=== PATIENT | female | born 1945 | race Caucasian/White ===

== ENCOUNTER → 2017-01-07 | Outpatient (CLI) | payer MEDICARE, BC ==
[2017-01-07 13:40] LABS: CH 29.1; CHCM 31.9; HCT 44.5 % (34.0-46.0); HDW 2.15; HGB 14.3 gm/dL (11.4-16.0); MCH 29.3 pg (25.0-35.0); MCV 91.6 fL (80.0-100.0); Mean Platelet Volume 7.5; RBC 4.86 m/uL (3.80-5.40); RDW 13.4 % (11.5-15.5)
[2017-01-07 13:49] LABS: Total Protein 8.5 g/dL (6.3-8.2)
[2017-01-07 13:53] LABS: Total Bilirubin 0.6 mg/dL (0.2-1.3)
[2017-01-07 14:32] LABS: Calcium 10.4 mg/dL (8.4-10.2); Potassium 4.5 mmol/L (3.5-5.1)
[2017-01-07 21:38] LABS: Hemoglobin A1C 6.3 % (4.2-6.1)
== END | disposition home or self-care (01) ==
LOC: LABWHC1 11:41
PROVIDERS: ATTEND Family Medicine
DX: Z00.00 Encounter for general adult medical examination without abnormal findings (principal); E03.9 Hypothyroidism, unspecified; E11.9 Type 2 diabetes mellitus without complications
CPT/HCPCS: 36415; 80053; 80061; 82306; 83036; 84439; 84443; 85027

== ENCOUNTER 2017-10-18 09:05 | Day surgery (SDC) | payer MEDICARE, BC ==
[2017-10-13 14:57] VITALS: BMI 26.6
--- NOTE | 2017-10-18 05:24 | HP ---
HISTORY AND PHYSICAL CHIEF COMPLAINT: Status post complete excision of large basal cell carcinoma of the right side of the nose. HISTORY OF PRESENT ILLNESS: This patient is a 72-year-old female who was recently seen in my office with interesting story. She apparently underwent resection of a basal cell carcinoma of the right side of her nose, which required extensive excision and initial reconstruction by Dr. Riojas. After the initial surgery, it was noted that there was still some evidence of tumor cells deep to the biopsy specimen and therefore a second surgery was planned. At the time of the second surgery, an attempt was made to cover the wound defect with a postauricular graft which apparently was not sufficient. Therefore, he subsequently performed a midline/median forehead flap to reconstruct the large wound defect on the right side of the nose. The procedure was done approximately 2 years ago. The patient due to transportation difficulty had problems returning to Dr. Riojas's office for followup and for suture removal. He had informed her that at some point the flap would need to be released. However, the patient for personal reasons decided not to return to Dr. Riojas. At this time, she is quite concerned about her appearance because of the large mass of flesh on the right side of her nose. Reviewing Dr. Riojas's records reveals that this was an invasive basal cell carcinoma. Clinical examination revealed that the area had healed completely and was well vascularized and the flap needed to be released superiorly and inferiorly. The patient was advised that the flap could be released and the area reconstructed under general anesthesia. PAST MEDICAL HISTORY: Past medical history reveals the patient has allergies to CARBATROL, LAMICTAL, KEPPRA. MEDICATIONS: Current medications include enalapril, one baby aspirin daily, Besylate, and Vimpat for seizures. REVIEW OF SYSTEMS: Cardiovascular is positive for hypertension. The remainder of review of systems is essentially unremarkable. PREVIOUS SURGERIES: Previous surgeries include tonsillectomy, adenoidectomy. The patient is 2 para, 2 , 0 miscarriages and also removal of skin cancer from the right side of the nose. PHYSICAL EXAMINATION: The patient is a 72-year-old female who is alert and cooperative. HEENT EXAMINATION: Patient is normocephalic. Tympanic membranes are normal. Middle ear spaces are free of any fluid or infection. Pupils equal, round and react to light and accommodation. Extraocular movements within normal limits. Intranasal examination is unremarkable. Examination of the face reveals the patient has a well-healed forehead flap pedicle on the right side of the nose. Examination of oropharynx, cranial nerves 2 through 12, palpation of the neck, remainder of the head and neck exam are all within normal limits. CHEST/CARDIOVASCULAR: Both lung castellon are clear to percussion and auscultation. The patient is in regular sinus rhythm. S1 and S2 are present without evidence of any murmurs, S3s or S4s. Peripheral pulses are bilaterally symmetrical. ABDOMEN: There is no evidence of masses, megaly, or tenderness. The abdomen is soft. Skin is unremarkable. Musculoskeletal and neurological and the remainder of the physical exam is essentially unremarkable. IMPRESSION: Status post excision of basal cell carcinoma of the right side of the nose with reconstruction via midline/median forehead flap. PLAN: The patient is scheduled for release of midline forehead flap and reconstruction under general anesthesia. ATTENTION RNS IN THE PRE-SURGICAL AREA: The only medications that I have ordered for this patient to receive are 1000 mg of Ofirmev IV and 1 gram of Kefzol IV, both to be given once an intravenous line has been established. I did not order any other pre- surgical prophylactic antibiotics for this patient. If the pharmacy department sends any other pre-surgical prophylactic antibiotics other than those that I have ordered to the pre-surgical area for this patient, they should be returned to the pharmacy department and make sure that the patient's account is credited appropriately. I have discussed the risks, benefits and alternative therapies for the above-mentioned procedure and for both sedation/analgesia as well as necessary blood product administration, if indicated, as they pertain to this patient. The patient has indicated his or her understanding and acceptance of the risks and procedures discussed. MMODL / IJN: [id number] /
[~2017-10-18 09:05] MED LIST: HYDROmorphone 0.5 MG/0.5 ML SYRINGE IVP PRN; LACTATED RINGERS 1,000 ML IV SCH; LIDOCAINE 1% 20 ML VIAL (10MG/ML) FOR IV START INTRADERMA PRN; ONDANSETRON 4 MG/2 ML VIAL IVP ONE; Pre Op ABX Message 1 EACH MISC MISCELLANE ONE; ceFAZolin 1,000 MG in DEXTROSE/WATER 1 50ML.BAG IVPB ONE
[2017-10-18 09:20] VITALS: TEMP 97.4
[2017-10-18] MEDS ORDERED: ACETAMINOPHEN IV (For NPO) 1,000 MG in EMPTY BAG 1 BAG IVPB ONE (09:45)
[2017-10-18] MEDS ORDERED: LIDOCAINE 1% INJ 10MG/ML (20 ML MDV) ONE (10:25)
[2017-10-18] MEDS ORDERED: GLYCOPYRROLATE 0.2 MG/ML 2 ML VIAL ONE (10:25)
[2017-10-18] MEDS ORDERED: ROCURONIUM BROMIDE 10 MG/ML 10 ML VIAL IV ONE (10:25)
[2017-10-18] MEDS ORDERED: PROPOFOL 10 MG/ML 20 ML VIAL IV ONE (10:25)
[2017-10-18] MEDS ORDERED: HYDROmorphone (PF) 1 MG/ML ONE (10:25)
[2017-10-18] MEDS ORDERED: MIDAZOLAM 2 MG/2 ML VIAL ONE (10:25)
[2017-10-18] MEDS ORDERED: PHENYLEPHRINE-0.9% NACL SYG 1 MG/10 ML SYRINGE ONE (10:25)
[2017-10-18] MEDS ORDERED: ePHEDrine SULFATE/0.9% NACL/PF 50 MG/5 ML SYRINGE IV ONE (10:25)
[2017-10-18] MEDS ORDERED: fentaNYL (PF) 50 MCG/ML 2 ML AMP ONE (10:25)
[2017-10-18] MEDS ORDERED: NEOSTIGMINE 1 MG/ML 10 ML VIAL ONE (10:25)
[2017-10-18 10:37] LABS: Calcium 10.1 mg/dL (8.4-10.2); Potassium 4.2 mmol/L (3.5-5.1)
[2017-10-18] MEDS ORDERED: LIDOCAINE 1%-EPI 1:100,000 20 ML VIAL SQ ONE (10:59)
[2017-10-18] MEDS ORDERED: LACTATED RINGERS 1,000 ML IV ONE (12:50)
[2017-10-18] MEDS ORDERED: BACITRACIN 500 UNIT/GM OINT 28.4 GM TUBE TOPICAL ONE (12:56)
[2017-10-18 13:35] LABS: Glucose,Whole Blood 117 mg/dL (75-99)
[2017-10-18 14:54] VITALS: RESP 20
[2017-10-18 14:58] VITALS: BP 142/72; PULSE 56
--- NOTE | 2017-10-18 23:24 | OP ---
OPERATIVE REPORT DATE OF SURGERY: 10/18/2017 PREOPERATIVE DIAGNOSES: 2nd stage nasal reconstruction with revision of midline forehead flap (status post excision of basal cell carcinoma 3-4 cm). POSTOPERATIVE DIAGNOSES: 2nd stage nasal reconstruction with revision of midline forehead flap (status post excision of basal cell carcinoma 3-4 cm). ANESTHESIA: Was general. OPERATIVE PROCEDURE: Nasal reconstruction with revision of forehead flap. SURGEON: Dr. Almeida. COMPLICATIONS: None. ESTIMATED BLOOD: Loss 10-15 mL. OPERATIVE PROCEDURE: The patient was placed on operating table in supine position and after uneventful induction and endotracheal intubation, satisfactory general anesthesia was obtained. Next the patient was draped and the right santiago face was prepped in the usual and customary fashion. Following this, the forehead flap was inspected and was found to be well healed. The original midline scar was also located and marked with a Codman seal marking pen. The handle of an empty scalpel blade was placed underneath the flap, which was located on the right side of the patient's nose and this was passed through easily, thus delineating the superior and inferior portion of the flap, namely the donor and the recipient areas. Attention was initially turned to the superior aspect of the flap, the donor site and using a Codman marking pen the appropriate thick proposed incisions to divide the flap at this area was made in the usual fashion. Next, using a #15 scalpel blade, an incision was initially made through skin only in the areas which had been previously been outlined with the Codman marking pen. The incision was subsequently carried deeper, but it was done so in a slow fashion with the knowledge that most likely the superior trochlear one of the nasal vessels would most likely be located in this portion of the flap. As the incision was carried deeper and the flap was eventually at this point. In fact, the a branch of the superior trochlear artery was encounter and this was clamped with a mosquito hemostats and subsequently was tied with a 4-0 silk suture. Minor bleeding was addressed using electrocautery. There was noted to be significant granulation tissue present and this was removed using a pair of small iris scissors in the usual fashion. The previously made incision which had been outlined with a Codman marker for the original surgery was subsequently incised a short distance, approximately 1-1/2 cm. Undermining of the soft tissues of the forehead was carried out using a pair of curved sharp curved scissors. Next, the flap itself was grasped and was manipulated back into its original position in the usual fashion. There was significant amount of granulation and scar tissue which was broken up with simple pressure and some of some of the granulation tissue was excised. Next, the muscle was from the flap and was subsequently sutured separately with 4-0 Vicryl suture in the wound defect. The flap itself was then trimmed to fit using a pair of sharp curved Nj scissors. Further granulation tissue was also removed with a sharp Esteban scissors. The flap was then put it back into its original position. It was noted that and doing so left only a minimal amount of asymmetry of the patient's eyebrows and a very slight bulge of the right superior orbit near the frontal nasal junction. Therefore, the flap was reattached in the usual fashion using 4-0 Vicryl for several deep sutures in a subcutaneous fashion. The skin itself was approximated using 4-0 Ethilon in a simple interrupted fashion. Inspection revealed that a satisfactory closure in appearance had been obtained. Next, attention was directed towards the inferior portion of the flap, which was the donor site on the right side of the nose and involving a portion of the cheek in the region of the nasal labial fold. The stump itself was delineated and the proposed incisions was outlined using Codman marking pen. This was done in the usual fashion and subsequently using a #15 scalpel blade. Incision was made through skin, subcutaneous tissue. Next, the scar tissue and fatty tissue was subsequently incised, thus freeing up the flap completely. Proper measurement/adjustment of the flap was made so that it would cover the original wound defect. The portion of the flap to be retained was outlined with a Codman marker and the excess flap was excised with a #15 scalpel in the usual and customary fashion and it was discarded. The flap rim that was subsequently trimmed to fit the wound defect in the usual fashion. It was tacked to the underlying subcutaneous tissue and muscle using a using several 4-0 Vicryl sutures in interrupted fashion. Hemostasis was obtained using electrocautery. The flap was then prior to doing this, the flap had to be significantly debulked of fatty tissue and scar tissue. This was done using a pair of curve Esteban scissors in the usual fashion. Care was taken not to thin the flap about too much. Also care was taken not to accidentally buttonhole the flap. Once it was felt that the flap was adequately thinned out with the appropriate amount of thick thickness having been achieved, the flap was further attached using 4-0 Ethilon in a simple interrupted fashion. Inspection revealed that a satisfactory cosmetic result had been obtained, both superiorly at the donor site and inferiorly at the recipient area. At this point, the procedure was terminated. The sutures/incisions were generously coated with bacitracin ointment. ESTIMATED BLOOD LOSS: Was 10-15 mL. COMPLICATIONS: There were no intraoperative complications. The patient tolerated the procedure well. There were no specimens sent to pathology. The patient was returned to the recovery room in satisfactory condition. It is to be noted that this procedure which normally would take approximately 35 minutes in fact in this patient took approximately 2 hours with a starting time of approximately 10:30 and completion time of approximately 11:33. The reason for the extended time was because of the significant scarring which was present due to the fact that there had been extended period of time, approximately 2 years, between the patient's original surgery and today's surgery. The scar tissue made the surgery somewhat slower and more difficult in an effort to achieve a satisfactory cosmetic result for this patient. MMODL / IJN: [id number] /
== END 2017-10-18 14:50 ==
LOC: OR 09:05
PROVIDERS: ATTEND Otolaryngology
DX: C44.311 Basal cell carcinoma of skin of nose (principal); Z42.8 Encounter for other plastic and reconstructive surgery following medical procedure or healed injury; Z85.828 Personal history of other malignant neoplasm of skin; I10 Essential (primary) hypertension; E78.5 Hyperlipidemia, unspecified; E11.9 Type 2 diabetes mellitus without complications; I69.398 Other sequelae of cerebral infarction; E07.9 Disorder of thyroid, unspecified; R56.9 Unspecified convulsions; Z79.891 Long term (current) use of opiate analgesic; Z79.82 Long term (current) use of aspirin; Z79.899 Other long term (current) drug therapy; Z88.8 Allergy status to other drugs, medicaments and biological substances; Z91.09 Other allergy status, other than to drugs and biological substances
CPT/HCPCS: 30430; 80048; J2250; J2710; J2001; J3010; J1170 ×2; J0690; J0131; J2370; J2704

== ENCOUNTER 2022-02-12 06:50 | Day surgery (SDC) | payer MEDICARE, BC ==
[2022-02-11 09:32] VITALS: BMI 26.1
[2022-02-12] MEDS ORDERED: LACTATED RINGERS 1,000 ML IV SCH (07:19)
[2022-02-12 08:06] VITALS: TEMP 97.6
[2022-02-12 08:16] LABS: Glucose,Whole Blood 203 mg/dL (75-99)
[2022-02-12] MEDS ORDERED: LIDOCAINE 2% INJ 20 MG/ML (2 ML VIAL) ONE (08:58)
[2022-02-12] MEDS ORDERED: PROPOFOL 10 MG/ML 20 ML VIAL IV ONE (08:58)
--- NOTE | 2022-02-12 09:02 | P.GSHP ---
History of Present Illness H&P Date: 02/12/22 Chief Complaint: Internal and external hemorrhoids, rectal bleeding This a 68-year-old female who's had issues with introduction hemorrhoids and some intermittent rectal bleeding. She feels today for colonoscopy. 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 ORIF LT UPPER LEG, KNEE (HAS 4 PINS). skin cancer removed from nose, 2-4-16 facial reconstruction forehead flap( d/t skin cancer) Past Anesthesia/Blood Transfusion Reactions: Motion Sickness Smoking Status: Never smoker - Past Family History Brother(s) Family Medical History: Cancer Medications and Allergies Home Medications Medication Instructions Recorded Confirmed Type Atorvastatin [Lipitor] 10 mg PO HS 02/11/22 02/11/22 History Insulin Aspart [NovoLOG Flexpen] 3 units SQ BID 02/11/22 02/11/22 History Insulin Aspart [NovoLOG Flexpen] 6 units SQ AC-SUPPER 02/11/22 02/11/22 History Metoprolol Tartrate [Lopressor] 25 mg PO BID 02/11/22 02/11/22 History Sennosides/Docusate Sodium [Senna 2 each PO HS 02/11/22 02/11/22 History Plus 8.6-50 mg Tablet] hydrALAZINE HCL [Apresoline] 100 mg PO DAILY PRN 02/11/22 02/11/22 History metOLazone [Zaroxolyn] 2.5 mg PO TID 02/11/22 02/11/22 History Allergies Allergy/AdvReac Type Severity Reaction Status Date / Time adhesive tape Allergy Itching Verified 02/12/22 07:58 carbamazepine Allergy Unknown Verified 02/12/22 07:58 [From Carbatrol] lamotrigine [From Lamictal] Allergy Unknown Verified 02/12/22 07:58 levetiracetam [From Keppra] Allergy Itching Verified 02/12/22 07:58 phenytoin sodium AdvReac REMOVED Verified 02/12/22 07:58 [From Dilantin] CALCIUM FROM BONES phenytoin sodium extended AdvReac REMOVED Verified 02/12/22 07:58 [From Dilantin] CALCIUM FROM BONES CELEBREX Allergy Unknown Uncoded 02/12/22 07:58 dial soap Allergy Itching Uncoded 02/12/22 07:58 Surgical - Exam Vital Signs Temp Pulse Resp BP Pulse Ox 97.6 F 69 18 120/67 92 L 02/12/22 08:04 02/12/22 08:04 02/12/22 08:04 02/12/22 08:04 02/12/22 08:04 - General well developed, well nourished, no distress - Eyes PERRL - ENT normal pinna - Neck no masses - Respiratory normal expansion - Cardiovascular Rhythm: regular - Abdomen Abdomen: soft, non tender Results - Labs Abnormal Lab Results - Last 24 Hours (Table) 02/12/22 Range/Units 08:15 POC Glucose (mg/dL) 203 H (75-99) mg/dL Assessment and Plan Assessment: Internal and external hemorrhoids Intermittent rectal bleeding. We'll perform colonoscopy
--- NOTE | 2022-02-12 09:10 | P.OP ---
Date of Procedure: 02/12/22 Preoperative Diagnosis: Internal and external hemorrhoids Rectal bleeding Postoperative Diagnosis: Internal and external hemorrhoids Poor colon prep Procedure(s) Performed: Colonoscopy Anesthesia: MAC Surgeon: Joby Singh Pathology: none sent Condition: stable Disposition: PACU Description of Procedure: Patient's placed on the endoscopy table in the lateral position. Patient had received IV sedation. Digital rectal exam performed which revealed internal and external hemorrhoids. There was a large amount stool in the rectal vault. Flexible colonoscope was then placed patient anus passed the rectum. The scope was passed beyond the sigmoid colon secondary to poor colon prep. Scope withdra wn. The visualized rectum appeared normal. The internal/external hemorrhoids were seen. Scope withdrawn for patient. Patient will need to be reprepped for colonoscopy.
[2022-02-12 10:53] VITALS: BP 146/90; PULSE 61; RESP 17
== END 2022-02-12 10:20 ==
LOC: ORWHC2ENDO 06:50
PROVIDERS: ATTEND Surgery
DX: K64.8 Other hemorrhoids (principal); K62.5 Hemorrhage of anus and rectum; K64.4 Residual hemorrhoidal skin tags; I12.9 Hypertensive chronic kidney disease with stage 1 through stage 4 chronic kidney disease, or unspecified chronic kidney disease; E11.22 Type 2 diabetes mellitus with diabetic chronic kidney disease; N18.4 Chronic kidney disease, stage 4 (severe); I69.354 Hemiplegia and hemiparesis following cerebral infarction affecting left non-dominant side; E78.5 Hyperlipidemia, unspecified; M19.90 Unspecified osteoarthritis, unspecified site; K59.00 Constipation, unspecified; Z85.828 Personal history of other malignant neoplasm of skin; Z90.49 Acquired absence of other specified parts of digestive tract; Z90.89 Acquired absence of other organs; Z98.890 Other specified postprocedural states; Z79.899 Other long term (current) drug therapy; Z79.4 Long term (current) use of insulin; Z88.8 Allergy status to other drugs, medicaments and biological substances; Z91.048 Other nonmedicinal substance allergy status; Z91.09 Other allergy status, other than to drugs and biological substances; Z98.51 Tubal ligation status; Z80.9 Family history of malignant neoplasm, unspecified
CPT/HCPCS: 45330; J2704; J2001